=== PATIENT | male | born 2000 | race Caucasian/White ===

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

== ENCOUNTER 2019-06-19 12:33 | Emergency (ER) | payer OTHER, SELFPAY ==
[2019-06-19] MEDS ORDERED: ONDANSETRON ODT 8 MG TAB SL ONE (12:57)
[2019-06-19] MEDS ORDERED: diazePAM 5 MG TAB PO ONE (12:57)
[2019-06-19 14:03] VITALS: O2SAT 98
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
[2019-06-19 14:46] VITALS: BP 114/64; TEMP 98
== END 2019-06-19 14:47 | disposition home or self-care (01) ==
LOC: ER 12:33
DX: G44.209 Tension-type headache, unspecified, not intractable (principal); R11.2 Nausea with vomiting, unspecified

== ENCOUNTER 2019-06-21 11:44 | Emergency (ER) | payer SELFPAY ==
[2019-06-21] MEDS ORDERED: KETOROLAC TROMETHAMINE INJ 30 MG/ML VIAL IV ONE (12:00)
[2019-06-21] MEDS ORDERED: METOCLOPRAMIDE HCL INJ 10 MG/2 ML VIAL IV ONE (12:00)
[2019-06-21] MEDS ORDERED: diphenhydrAMINE HCL 50 MG/ML VIAL IV STA (12:00)
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
--- NOTE | 2019-06-21 12:44 | CT ---
Study: CT of the Head. Indication: headache Technique: Axial CT images of the head were acquired without intravenous contrast. This exam was performed according to our departmental dose-optimization program, which includes automated exposure control, adjustment of the mA and/or kV according to patient size and/or use of iterative reconstruction technique. Comparison: None. Findings: No acute ischemia, acute hemorrhage, mass, mass effect, midline shift, or extra-axial fluid collection identified by CT. Ventricles are normal in configuration without hydrocephalus. Brain parenchyma demonstrates a normal appearance for patient age. Paranasal sinuses are adequately aerated. Mastoid air cells are adequately aerated. Osseous structures and soft tissues are unremarkable. Impression: No acute intracranial abnormality by CT. Electronically signed by: Shaun Morgan MD 06/21/2019 12:42 PM CDT
[2019-06-21 13:17] VITALS: BP 123/67; TEMP 97.6; O2SAT 99
== END 2019-06-21 13:10 | disposition home or self-care (01) ==
LOC: ER 11:44
DX: R51 Headache (principal); R11.2 Nausea with vomiting, unspecified
CPT/HCPCS: 70450; 80048; 85025; J1200; J1885; J2765